=== PATIENT | female | born 1975 | race Caucasian/White ===

== ENCOUNTER 2017-04-01 15:13 | Emergency (ER) | payer SELFPAY ==
[2017-04-01 15:23] VITALS: RESP 16; O2SAT 100
[2017-04-01] MEDS ORDERED: Sodium Chloride 0.9% 1,000 ML IV ONE (15:41)
[2017-04-01] MEDS ORDERED: Sodium Chloride 0.9% 1,000 ML ONE (15:57)
--- NOTE | 2017-04-01 16:18 | C.PDOC ---
History Of Present Illness 41 y/o female presents to ED with complaints of heavy vaginal bleeding for 2 months, with associated abdominal pain radiating to back. Patient admits to feeling dizzy and today thought she would "black out". Claire states her menses started middle of January and has been bleeding daily changing pads 2x a day. She reports seeing PMD 4 days ago. 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 Patient took Tylenol today for pain with no improvement and denies nausea, vomiting, dysuria or any other complaints at this time. Time Seen by Provider: 04/01/17 15:33 Chief Complaint (Nursing): Abdominal Pain History Per: Patient History/Exam Limitations: no limitations Onset/Duration Of Symptoms: Days Current Symptoms Are (Timing): Still Present Location Of Pain/Discomfort: Suprapubic Past Medical History Reviewed: Historical Data, Nursing Documentation, Vital Signs Vital Signs: Last Vital Signs Temp 98.4 F 04/01/17 15:22 Pulse 84 04/01/17 15:22 Resp 16 04/01/17 15:22 BP 113/81 04/01/17 15:22 Pulse Ox 100 04/01/17 18:19 - Medical History PMH: No Chronic Diseases Surgical History: No Surg Hx Family History: States: No Known Family Hx - Social History Hx Tobacco Use: No Hx Alcohol Use: Yes Hx Substance Use: No - Immunization History Hx Tetanus Toxoid Vaccination: No Hx Influenza Vaccination: No Hx Pneumococcal Vaccination: No Review Of Systems Constitutional: Negative for: Fever, Chills Gastrointestinal: Positive for: Abdominal Pain. Negative for: Nausea, Vomiting Genitourinary: Positive for: Vaginal Bleeding. Negative for: Dysuria Musculoskeletal: Positive for: Back Pain Skin: Negative for: Rash Physical Exam - Physical Exam Appears: Non-toxic, Other (Uncomfortable) Skin: Warm, Dry, Pale, No Rash Head: Atraumatic, Normacephalic Eye(s): bilateral: Normal Inspection Oral Mucosa: Moist Neck: Normal ROM, Supple Cardiovascular: Rhythm Regular, No Murmur Respiratory: Normal Breath Sounds, No Rales, No Rhonchi, No Wheezing Gastrointestinal/Abdominal: Soft, Tenderness (Suprapubic), No Guarding, No Rebound Back: No CVA Tenderness Extremity: Bilateral: Atraumatic, Normal Color And Temperature, Normal ROM Neurological/Psych: Oriented x3, Normal Speech Gait: Steady ED Course And Treatment - Laboratory Results Result Diagrams: 04/01/17 16:20 04/01/17 16:20 Lab Interpretation: No Acute Changes O2 Sat by Pulse Oximetry: 100 (RA) Pulse Ox Interpretation: Normal - CT Scan/US Pelvic US Other Rad Studies (CT/US): Read By Radiologist, Radiology Report Reviewed CT/US Interpretation: HISTORY: pelvic pain, heavy bleeding. COMPARISON: None available. TECHNIQUE: Real-time transabdominal pelvic ultrasound was performed. In addition a transvaginal pelvic ultrasound was necessary to better depict pelvic anatomy. FINDINGS: UTERUS: Measures 9.9 x 6.2 x 7.0 cm. Anteverted. Heterogeneous uterine parenchyma. 2.3 x 2.4 x 2.7 cm mid anterior subserosal fibroid. ENDOMETRIUM: Measures 1.8 cm in diameter. CERVIX: Cervix length measures approximately 3.2 cm. RIGHT OVARY: Measures 2.8 x 2.0 x 2.2 cm. Blood flow is demonstrated. LEFT OVARY: Not visualized. FREE FLUID : No significant free fluid noted. OTHER FINDINGS: None. IMPRESSION: Heterogeneous uterine parenchyma. 2.7 cm mid anterior sub serosal uterine fibroid. Thickened endometrium. The left ovary is not visualized. Please note that this examination is predicated on a negative test. Correlate clinically. Medical Decision Making Medical Decision Making: Impression: Pelvic pain, vaginal bleeding Plan: Iv fluids, UA, Blood work, Pelvis US ordered Progress: Labs reviewed and normal H/H/, hypokalemia oral KCL was given US shows fibroma Patient remained afebrile and in no acute distress. Discussed results and copy of lab and US report was provided. Explain she needs to see supervisor whipped topping. Can continue with provera and will give analgesic Patient feels comfortable going home and will be discharged. Patient given follow up instructions. Instructed to return to ER if symptoms worsen or new symptoms arise. Disposition Counseled Patient/Family Regarding: Diagnosis, Need For Followup, Rx Given - Disposition Referrals: [facility] [Outside] [facility] [Outside] [facility] [Outside] Disposition: HOME/ ROUTINE Disposition Time: 18:18 Condition: STABLE Additional Instructions: Your labs were normal and ultrasound shows uterine fibroid Take Naproxen for pain It is important that you follow up with supervisor whipped topping, if you do not have one please go to the clinic Prescriptions: Naproxen [Naprosyn] 1 tab PO BID PRN #25 tab PRN Reason: Pain Instructions: Uterine Fibroids (DC) Forms: [employer] (French) - POA Present On Arrival: None - Clinical Impression Clinical Impression: Uterine fibroid - PA / WHISKEY REGAUGER / Resident Statement MD/DO has reviewed & agrees with the documentation as recorded. - Scribe Statement The provider has reviewed the documentation as recorded by the Wanderibmeg Georges All medical record entries made by the Christian were at my direction and personally dictated by me. I have reviewed the chart and agree that the record accurately reflects my personal performance of the history, physical exam, medical decision making, and the department course for this patient. I have also personally directed, reviewed, and agree with the discharge instructions and disposition.
[2017-04-01 16:27] LABS: BASO % 0.3 % (0.0-2.0); EOS # 0.1 K/uL (0.0-0.7); EOS % 1.3 % (0.0-4.0); HEMOGLOBIN 11.9 g/dL (11.0-16.0); LYMPH # 2.8 K/uL (1.0-4.3); LYMPH % 31.2 % (20.0-40.0); MEAN CORPUSCULAR HEMOGLOBIN 24.4 pg (27.0-31.0); MEAN CORPUSCULAR HGB CONC 32.9 g/dL (33.0-37.0); MEAN PLATELET VOLUME 9.3 fL (7.2-11.7); MONO # 0.3 K/uL (0.0-0.8); MONO % 3.1 % (0.0-10.0); NEUT # 5.7 K/uL (1.8-7.0); NEUT % 64.1 % (50.0-75.0); NRBC % 0.1 % (0.0-2.0); RBC 4.9 Mil/uL (3.80-5.20); RED CELL DISTRIBUTION WIDTH 16.4 % (11.5-14.5); WHITE BLOOD COUNT 8.9 K/uL (4.8-10.8)
[2017-04-01 16:38] LABS: INR 1.1; PROTHROMBIN TIME 11.9 SECONDS (9.7-12.2)
[2017-04-01 16:53] LABS: ALB/GLOB RATIO 1.2 (1.0-2.1); ALBUMIN 4.4 g/dL (3.5-5.0); ALT/SGPT 46 U/L (9-52); AST/SGOT 33 U/L (14-36); BLOOD UREA NITROGEN 10 mg/dL (7-17); CALCIUM 9.8 mg/dl (8.6-10.4); GFR AFRICAN-AMERICAN > 60; GFR NON-AFRICAN AMERICAN > 60; LIPASE 91 U/L (23-300)
[2017-04-01] MEDS ORDERED: Potassium Chloride 20 mEq ER Tab PO STA (17:04)
[2017-04-01] MEDS ORDERED: Potassium Chloride 20 mEq ER Tab PO ONE (17:52)
--- NOTE | 2017-04-01 17:52 | US ---
HISTORY: pelvic pain, heavy bleeding COMPARISON: None available. TECHNIQUE: Real-time transabdominal pelvic ultrasound was performed. In addition a transvaginal pelvic ultrasound was necessary to better depict pelvic anatomy. FINDINGS: UTERUS: Measures 9.9 x 6.2 x 7.0 cm. Anteverted. Heterogeneous uterine parenchyma. 2.3 x 2.4 x 2.7 cm mid anterior subserosal fibroid. ENDOMETRIUM: Measures 1.8 cm in diameter. CERVIX: Cervix length measures approximately 3.2 cm. RIGHT OVARY: Measures 2.8 x 2.0 x 2.2 cm. Blood flow is demonstrated. LEFT OVARY: Not visualized. FREE FLUID: No significant free fluid noted. OTHER FINDINGS: None. IMPRESSION: Heterogeneous uterine parenchyma. 2.7 cm mid anterior sub serosal uterine fibroid. Thickened endometrium. The left ovary is not visualized. Please note that this examination is predicated on a negative test. Correlate clinically.
[2017-04-01 18:05] LABS: HCG,QUALITATIVE URINE NEGATIVE (NEGATIVE)
[2017-04-01 18:10] LABS: SQUAMOUS EPITHIAL 5 /hpf (0-5); URINE BILIRUBIN NEGATIVE (NEGATIVE); URINE BLOOD 2+ (NEGATIVE); URINE CLARITY Hazy (Clear); URINE COLOR Yellow (YELLOW); URINE GLUCOSE (UA) NORMAL (Normal); URINE HYALINE CAST 0-2 /lpf (0-2); URINE LEUKOCYTE ESTERASE NEG Leu/uL (Negative); URINE NITRATE NEGATIVE (NEGATIVE); URINE PROTEIN NEGATIVE (NEGATIVE); URINE UROBILINOGEN NORMAL mg/dL (0.2-1.0)
[2017-04-01 18:34] VITALS: BP 115/75; PULSE 80; TEMP 97.8
== END 2017-04-01 18:45 | disposition home or self-care (01) ==
LOC: C.ER 15:13
DX: D25.2 Subserosal leiomyoma of uterus (principal)
CPT/HCPCS: 76830; 76856; 80053; 81001; 83690; 84439; 84443; 84703; 85025; 85610; 85730; 96360; 99285; J7040

== ENCOUNTER 2017-04-12 12:00 | Emergency (ER) | payer SELFPAY ==
[2017-04-12 12:04] VITALS: BP 137/82; PULSE 87; RESP 20; TEMP 98.5; O2SAT 99
== END 2017-04-12 12:47 | disposition left against medical advice (07) ==
LOC: C.ER 12:00
DX: Z02.89 Encounter for other administrative examinations (principal); Z00.00 Encounter for general adult medical examination without abnormal findings

== ENCOUNTER 2017-04-21 05:13 | Observation (INO) | payer OTHER ==
--- NOTE | 2017-04-21 05:18 | C.PDOC ---
History Of Present Illness pt woke up with some chest pain. Told her . He gave her 1 asa81 mg. then pt felt lightheaded and had a syncopal episode lasting a fe seconds. No seizure activity observed. Pt also has been having heavy vaginal bleeding over the last 4 months from possible uterine fibroids. No f/c/n/v Time Seen by Provider: 04/21/17 05:18 Chief Complaint (Nursing): Chest Pain History Per: Patient History/Exam Limitations: no limitations Onset/Duration Of Symptoms: Hrs Current Symptoms Are (Timing): Still Present Context: Other Severity: Moderate Pain Scale Rating Of: 4 Quality: Dull Associated Symptoms: denies: Nausea, Dyspnea Modifying Factors: None Exacerbating Factors: None Alleviating Factors: None Recent travel outside of the [place]: No Additional History Per: Family Past Medical History Reviewed: Historical Data, Nursing Documentation, Vital Signs Vital Signs: Last Vital Signs Temp 98.1 F 04/21/17 06:37 Pulse 67 04/21/17 06:37 Resp 17 04/21/17 06:37 BP 114/78 04/21/17 06:37 Pulse Ox 98 04/21/17 06:37 Family History: States: No Known Family Hx - Social History Hx Tobacco Use: No Hx Alcohol Use: Yes Hx Substance Use: No - Immunization History Hx Tetanus Toxoid Vaccination: No Hx Influenza Vaccination: No Hx Pneumococcal Vaccination: No Review Of Systems Constitutional: Negative for: Fever, Chills Eyes: Negative for: Redness ENT: Negative for: Throat Pain Cardiovascular: Positive for: Chest Pain Respiratory: Negative for: Shortness of Breath Gastrointestinal: Negative for: Nausea, Vomiting, Abdominal Pain Genitourinary: Positive for: Vaginal Bleeding. Negative for: Dysuria Musculoskeletal: Negative for: Back Pain Skin: Negative for: Rash Neurological: Negative for: Weakness Psych: Negative for: Anxiety Physical Exam - Physical Exam Appears: Non-toxic Skin: Warm, Dry Head: Normacephalic Eye(s): bilateral: Normal Inspection Oral Mucosa: Moist Neck: Supple Chest: Symmetrical Cardiovascular: Rhythm Regular Respiratory: No Rales, No Rhonchi, No Wheezing Gastrointestinal/Abdominal: Soft, No Tenderness, No Distention Back: No CVA Tenderness Extremity: Normal ROM Extremity: Bilateral: Atraumatic Pulses: Left Dorsalis Pedis: Normal, Right Dorsalis Pedis: Normal Neurological/Psych: Oriented x3, Normal Speech, Normal Cognition Gait: Steady ED Course And Treatment - Laboratory Results Result Diagrams: 04/21/17 05:44 04/21/17 05:44 ECG: Interpreted By Me, Viewed By Me ECG Rhythm: Sinus Rhythm (80), Nonspecific Changes Pulse Ox Interpretation: Normal - Radiology CXR: Interpreted by Me, Viewed By Me CXR Interpretation: No: Infiltrates, Fracture, Pnemothorax Disposition - Disposition Disposition Time: 06:53 Condition: FAIR Forms: [employer] ([place]) - Clinical Impression Clinical Impression: Chest pain, Syncope, Vaginal bleeding Physician Patient Turnover Patient Signed Over To: Adrianne Hackett Handoff Comments: pending labs and re-asses
[2017-04-21] MEDS ORDERED: Aspirin 325 mg EC Tablets PO STA (05:35)
[2017-04-21 05:47] LABS: BASO % 0.6 % (0.0-2.0); EOS # 0.2 K/uL (0.0-0.7); EOS % 2.9 % (0.0-4.0); HEMOGLOBIN 9.2 g/dL (11.0-16.0); LYMPH # 3.4 K/uL (1.0-4.3); LYMPH % 39.3 % (20.0-40.0); MEAN CORPUSCULAR HGB CONC 32.9 g/dL (33.0-37.0); MEAN PLATELET VOLUME 9.6 fL (7.2-11.7); MONO # 0.4 K/uL (0.0-0.8); MONO % 5.1 % (0.0-10.0); NEUT # 4.5 K/uL (1.8-7.0); NEUT % 52.1 % (50.0-75.0); NRBC % 0.1 % (0.0-2.0); RBC 3.53 Mil/uL (3.80-5.20); RED CELL DISTRIBUTION WIDTH 19.9 % (11.5-14.5); WHITE BLOOD COUNT 8.7 K/uL (4.8-10.8)
[2017-04-21 05:56] LABS: INR 0.9; PROTHROMBIN TIME 10.5 SECONDS (9.7-12.2)
[2017-04-21 06:12] LABS: B-TYPE NATRIURETIC PEPTIDE 34.5 pg/mL (0-450)
[2017-04-21 06:25] LABS: ALB/GLOB RATIO 1.1 (1.0-2.1); ALBUMIN 3.7 g/dL (3.5-5.0); ALT/SGPT 28 U/L (9-52); AST/SGOT 16 U/L (14-36); BLOOD UREA NITROGEN 8 mg/dL (7-17); CALCIUM 8.6 mg/dl (8.6-10.4); GFR AFRICAN-AMERICAN > 60; GFR NON-AFRICAN AMERICAN > 60
[2017-04-21 06:39] LABS: HCG,QUALITATIVE URINE NEGATIVE (NEGATIVE)
[2017-04-21 06:45] LABS: SQUAMOUS EPITHIAL 3 /hpf (0-5); URINE BILIRUBIN NEGATIVE (NEGATIVE); URINE BLOOD 3+ (NEGATIVE); URINE CLARITY Hazy (Clear); URINE COLOR Red (YELLOW); URINE GLUCOSE (UA) NORMAL (Normal); URINE LEUKOCYTE ESTERASE TRACE Leu/uL (Negative); URINE NITRATE NEGATIVE (NEGATIVE); URINE PROTEIN 1+ mg/dL (NEGATIVE); URINE UROBILINOGEN NORMAL mg/dL (0.2-1.0)
--- NOTE | 2017-04-21 08:55 | RAD ---
Chest x-ray single frontal view History: Chest pain. Comparison: 05/12/2014 Findings: No focal infiltrate or effusion. Heart size within normal limits. Impression: No focal infiltrate or effusion.
[2017-04-21] MEDS ORDERED: Ferric Sodium Gluconat Complex 62.5 mg/5 ml Vial IVPB SCH (10:30)
--- NOTE | 2017-04-21 10:38 | CP.PCM.HP ---
<Alon Arciniega - Last Filed: 04/21/17 17:20> History of Present Illness - History of Present Illness History of Present Illness: PGY1 H+P for Dr. Abreu Patient is a 41 yr old female with a PMHx of fibroids-newly diagnosed in January 2017, who presented to the ED this morning with complaints of chest pain and a syncopal event. Patient reports she was awoken from her sleep at 4: 45am with severe right sided chest pain. She reports the pain to be 10/10, sharp in quality, constant, with associated dizziness and SOB. Patient denies and radiation of pain, nausea, or diaphoresis. Patient reports she awoke her who then helped her back in to bed. While in his arms reports the patient had a syncopal event lasting 2 minutes. He reports patient lost consciousness, however denies any convulsions or incontinence. Patient has a history of a 2.7 cm mid anterior sub serosal fibroid recently discovered on US after patient to ED with reports of uncontrolled vaginal bleeding, daily since January. The vaginal bleed produces many clots. Patient is seen in the [facility] for [facility] care and is due to follow up within the next 2 weeks. Her PMD- Killian, recently started her on medroxyprogesterone. Denies fevers, chills, nausea, vomiting, diarrhea, constipation, dysuria, cough, shortness of breath, numbness or tingling. PMD: Dr. Daily PMH: fibroids PSH: denies FamilyHx: non-contributory Social: never smoker, social alcohol, denies illicit drug use Allergies: NKDA Present on Admission - Present on Admission Any Indicators Present on Admission: No Review of Systems - Review of Systems All systems: reviewed and no additional remarkable complaints except (as HPI) Past Patient History - Infectious Disease Hx of Infectious Diseases: None - Past Social History Smoking Status: Never Smoked - GENITOURINARY/GYNECOLOGICAL Other/Comment: fiboid uterus , vag. bleeding x 4 months - PSYCHIATRIC Hx Substance Use: No - SURGICAL HISTORY Hx Surgeries: No - ANESTHESIA Hx Anesthesia: No Hx Anesthesia Reactions: No Meds Allergies/Adverse Reactions: Allergies Allergy/AdvReac Type Severity Reaction Status Date / Time No Known Allergies Allergy Verified 04/21/17 05:15 Physical Exam - Constitutional Appears: Non-toxic, No Acute Distress - Head Exam Head Exam: ATRAUMATIC, NORMOCEPHALIC - Eye Exam Eye Exam: EOMI Pupil Exam: NORMAL ACCOMODATION - ENT Exam ENT Exam: Mucous Membranes Moist - Respiratory Exam Respiratory Exam: Clear to Auscultation Bilateral, NORMAL BREATHING PATTERN. absent: Accessory Muscle Use, Rales, Rhonchi, Wheezes, Respiratory Distress - Cardiovascular Exam Cardiovascular Exam: REGULAR RHYTHM, +S1, +S2. absent: JVD Additional comments: Reproducible pain - Tender to palpation on right side of sternum - GI/Abdominal Exam GI & Abdominal Exam: Normal Bowel Sounds, Soft, Tenderness. absent: Distended, Firm, Guarding Additional comments: LLQ - Extremities Exam Extremities exam: Positive for: pedal pulses present. Negative for: calf tenderness, pedal edema - Back Exam Back exam: absent: CVA tenderness (L), CVA tenderness (R), paraspinal tenderness - Neurological Exam Neurological exam: Alert, Oriented x3 - Psychiatric Exam Psychiatric exam: Normal Affect, Normal Mood - Skin Skin Exam: Dry, Warm Results - Vital Signs Recent Vital Signs: Last Vital Signs Temp 98 F 04/21/17 10:14 Pulse 65 04/21/17 10:14 Resp 16 04/21/17 10:14 BP 120/70 04/21/17 10:14 Pulse Ox 98 04/21/17 10:14 - Labs Result Diagrams: 04/21/17 05:44 04/21/17 05:44 Labs: Laboratory Results - last 24 hr 04/21/17 04/21/17 04/21/17 05:44 05:44 05:44 WBC 8.7 RBC 3.53 L Hgb 9.2 L D Hct 27.9 L MCV 79.0 L D MCH 26.0 L MCHC 32.9 L RDW 19.9 H Plt Count 310 MPV 9.6 Neut % (Auto) 52.1 Lymph % (Auto) 39.3 [place] % (Auto) 5.1 Eos % (Auto) 2.9 Baso % (Auto) 0.6 Neut # (Auto) 4.5 Lymph # (Auto) 3.4 [place] # (Auto) 0.4 Eos # (Auto) 0.2 Baso # (Auto) 0.0 PT 10.5 INR 0.9 APTT 27 Sodium 140 Potassium 3.8 Chloride 105 Carbon Dioxide 24 Anion Gap 16 BUN 8 Creatinine 0.6 L Est GFR ( Amer) > 60 Est GFR (Non-Af Amer) > 60 Random Glucose 102 Calcium 8.6 Total Bilirubin 0.7 AST 16 ALT 28 Alkaline Phosphatase 66 Troponin I < 0.0120 NT-Pro-B Natriuret Pep 34.5 Total Protein 7.0 Albumin 3.7 Globulin 3.3 Albumin/Globulin Ratio 1.1 Urine Color Urine Clarity Urine pH Ur Specific [place] Urine Protein Urine Glucose (UA) Urine Ketones Urine Blood Urine Nitrate Urine Bilirubin Urine Urobilinogen Ur Leukocyte Esterase Urine WBC (Auto) Urine RBC (Auto) Ur Squamous Epith Cells Urine HCG, Qual Blood Type Antibody Screen 04/21/17 04/21/17 05:44 06:36 WBC RBC Hgb Hct MCV MCH MCHC RDW Plt Count MPV Neut % (Auto) Lymph % (Auto) [place] % (Auto) Eos % (Auto) Baso % (Auto) Neut # (Auto) Lymph # (Auto) [place] # (Auto) Eos # (Auto) Baso # (Auto) PT INR APTT Sodium Potassium Chloride Carbon Dioxide Anion Gap BUN Creatinine Est GFR ( Amer) Est GFR (Non-Af Amer) Random Glucose Calcium Total Bilirubin AST ALT Alkaline Phosphatase Troponin I NT-Pro-B Natriuret Pep Total Protein Albumin Globulin Albumin/Globulin Ratio Urine Color Red Urine Clarity Hazy Urine pH 5.0 Ur Specific [place] 1.013 Urine Protein 1+ H Urine Glucose (UA) Normal Urine Ketones Negative Urine Blood 3+ H Urine Nitrate Negative Urine Bilirubin Negative Urine Urobilinogen Normal Ur Leukocyte Esterase Trace Urine WBC (Auto) 20 H Urine RBC (Auto) 1199 H Ur Squamous Epith Cells 3 Urine HCG, Qual Negative Blood Type B POSITIVE Antibody Screen Negative Assessment & Plan - Assessment and Plan (Free Text) Plan: Chest Pain with syncope CXR EKG - NSR, normal axis, not ST changes OTTO negative x2, f/u third f/u ECHO TSH/free T4 f/u Lipid panel f/u Hgb A1c f/u Anemia - secondary to menorrhagia [facility] consult, Dr. Graf, help appreciated Transvag US 04/01 - 2.7 cm mid-anterior sub serosal uterine fibroid Hgb 9.2 - was 11.9 on 04/01/17 Type and Screen - B negative Medroxyprogesterone 10mg PO daily Ferric Sodium 125mg IVPB daily Prophylactic Care DVT - anticoag contraindicated due to anemia SCDs Case discussed with Dr. Lois Arciniega PGY1 <Francisco Abreu H - Last Filed: 04/22/17 08:56> Results - Vital Signs Recent Vital Signs: Last Vital Signs Temp 98.1 F 04/22/17 07:00 Pulse 80 04/22/17 07:00 Resp 18 04/22/17 07:00 BP 129/80 04/22/17 07:00 Pulse Ox 98 04/22/17 07:00 - Labs Result Diagrams: 04/22/17 07:46 04/22/17 07:46 Labs: Laboratory Results - last 24 hr 04/21/17 04/21/17 04/22/17 12:18 18:05 07:46 WBC 6.3 RBC 3.25 L Hgb 8.4 L Hct 25.7 L MCV 79.0 L MCH 26.0 L MCHC 32.9 L RDW 20.2 H Plt Count 282 MPV 9.6 Neut % (Auto) 58.1 Lymph % (Auto) 33.4 [place] % (Auto) 5.3 Eos % (Auto) 2.4 Baso % (Auto) 0.8 Neut # (Auto) 3.7 Lymph # (Auto) 2.1 [place] # (Auto) 0.3 Eos # (Auto) 0.2 Baso # (Auto) 0.0 PT INR APTT Sodium Potassium Chloride Carbon Dioxide Anion Gap BUN Creatinine Est GFR ( Amer) Est GFR (Non-Af Amer) Random Glucose Hemoglobin A1c Calcium Total Bilirubin AST ALT Alkaline Phosphatase Total Creatine Kinase 42 51 CK-MB (Mass) 0.23 0.27 Troponin I < 0.0120 < 0.0120 Total Protein Albumin Globulin Albumin/Globulin Ratio Triglycerides Cholesterol LDL Cholesterol Direct HDL Cholesterol Thyroxine (T4) TSH 3rd Generation 04/22/17 04/22/17 04/22/17 07:46 07:46 07:46 WBC RBC Hgb Hct MCV MCH MCHC RDW Plt Count MPV Neut % (Auto) Lymph % (Auto) [place] % (Auto) Eos % (Auto) Baso % (Auto) Neut # (Auto) Lymph # (Auto) [place] # (Auto) Eos # (Auto) Baso # (Auto) PT 12.1 INR 1.1 APTT 29 Sodium 142 Potassium 4.2 Chloride 105 Carbon Dioxide 25 Anion Gap 16 BUN 6 L Creatinine 0.6 L Est GFR ( Amer) > 60 Est GFR (Non-Af Amer) > 60 Random Glucose 92 Hemoglobin A1c 4.9 Calcium 8.4 L Total Bilirubin 0.8 AST 18 ALT 19 Alkaline Phosphatase 56 Total Creatine Kinase CK-MB (Mass) Troponin I Total Protein 6.6 Albumin 3.6 Globulin 3.0 Albumin/Globulin Ratio 1.2 Triglycerides 166 H Cholesterol 228 H LDL Cholesterol Direct 143 H HDL Cholesterol 33 Thyroxine (T4) 9.43 TSH 3rd Generation 4.05 Attending/Attestation - Attestation I have personally seen and examined this patient.: Yes I have fully participated in the care of the patient.: Yes I have reviewed all pertinent clinical information: Yes Notes (Text): 04/22/17 08:56 Medical attending: Patient was seen and examined by me and the bilingual medical receptionist in the emergency room at 6. Family members were present as well, the patient was okay with this. I reviewed the above note by the resident and agree with the above When we came and saw the patient she was not in any acute distress she explained to us that she does have heavy menstrual periods. She did have a transvaginal ultrasound done in March which showed that she does have at least one fibroid that's that about 2.7 cm size. She was already on medroxyprogesterone and she supposed to have outpatient follow-up with [facility] in the near future. Her hemoglobin was decreased from the previous time she was here, as reported above she's been having bleeding. We well type and screen her and for now and give her some IV iron. I explained to them that tomorrow if the hemoglobin is substantially lower were consider transfusing her. In the meantime because she had a syncopal episode on the to check additional cardiac enzymes, as well as an echo. I explained to the patient that if her lab work and studies are normal will consider discharging her tomorrow provided that she is able to ambulate is and not become dizzy. We encouraged her to be very careful when sitting up quickly in case she becomes dizzy orthostatic Thank you very much, Francisco Abreu
[2017-04-21] MEDS: Sodium Chloride 0.9% 1,000 ML IV SCH ×2 (10:49→21:06)
--- NOTE | 2017-04-21 12:21 | CP.PCM.CON ---
<Sahara Mitchell - Last Filed: 04/21/17 17:37> History of Present Illness - History of Present Illness History of Present Illness: Consult note for Dr. Velasquez CC: Vaginal bleeding (x3 months), Chest pain and syncope HPI: A 41 yo female presents complaining of vaginal bleeding for the past 3 months. Patient states that this morning she woke up with a sharp chest pain at around 4:45 AM, and then blacked out in bed for 5-10 seconds. Patient was brought to ED by her . Patient states that the chest pain in the right chest, comes and goes, does not radiate, no particular exacerbating or remitting factors, associated with shortness of breath and anxiety. Patient states she took an aspirin which did not help her pain. Bleeding started Jan 26. Patient describes bleeding as heavy, with clots, soaks through 3-4 pads daily. Patient states she was started on Provera 10 mg daily by her PCP for the vaginal bleeding in February and that there has been no improvement in her bleeding. Patient states she is willing to have a hysterectomy if that will stop her heavy bleeding; no longer desires . Patient not having chest pain or shortness of breath at this time. Denies nausea, vomiting, diarrhea, constipation, fever, chills. Admits to abdominal/pelvic pain and associated left back pain since the onset of the bleeding, similar to the cramps she has during her normal menstrual period. Denies any history of recent travel or prolonged immobilization. 12 point ROS was obtained and was negative except as above. All: NKDA PMH: Denies PSH: Denies FHx: Father , Heart disease and DM; Mother with HTN, and hysterectomy age 35 2/2 menorrhagia Soc: Denies tobacco, alcohol, or illicits. Lives with of 25 years OB Hx: 1993 - , uncomplicated , labor, and delivery 1994 - First trimester spontaneous 1997 - , uncomplicated , labor, and delivery 2006 - First trimester spontaneous [employer] Hx: [place] - 14, monthly, 6 days Currently sexually active with one male partner - of 25 years Denies history of STIs or cysts Fibroid, diagnosed 04/01/17 Past Patient History - Infectious Disease Hx of Infectious Diseases: None - Past Social History Smoking Status: Never Smoked - GENITOURINARY/GYNECOLOGICAL Other/Comment: fiboid uterus , vag. bleeding x 4 months - PSYCHIATRIC Hx Substance Use: No - SURGICAL HISTORY Hx Surgeries: No - ANESTHESIA Hx Anesthesia: No Hx Anesthesia Reactions: No Meds Allergies/Adverse Reactions: Allergies Allergy/AdvReac Type Severity Reaction Status Date / Time No Known Allergies Allergy Verified 04/21/17 05:15 - Medications Medications: Current Medications Acetaminophen (Tylenol 325mg Tab) 650 mg PO Q6 PRN PRN Reason: fever/pain Sodium Chloride (Sodium Chloride 0.9%) 1,000 mls @ 50 mls/hr IV .Q20H [facility] Last Admin: 04/21/17 10:49 Dose: 50 mls/hr Ferric Sodium Gluconate Complex 125 mg/ Sodium Chloride 110 mls @ 110 mls/hr IVPB Q24H [facility] Stop: 04/29/17 11:01 Medroxyprogesterone Acetate (Provera) 10 mg PO DAILY [facility] Physical Exam - Constitutional Appears: Non-toxic, No Acute Distress - Head Exam Head Exam: ATRAUMATIC, NORMOCEPHALIC - Eye Exam Eye Exam: EOMI, Normal appearance, PERRL. absent: Scleral icterus - ENT Exam ENT Exam: Mucous Membranes Moist - Neck Exam Neck exam: Positive for: Normal Inspection - Respiratory Exam Respiratory Exam: Clear to Auscultation Bilateral, NORMAL BREATHING PATTERN - Cardiovascular Exam Cardiovascular Exam: RRR, +S1, +S2. absent: Tachycardia - GI/Abdominal Exam GI & Abdominal Exam: Normal Bowel Sounds, Soft. absent: Tenderness - Exam Additional comments: Bright red blood noted from cervical os No masses or polyps No adnexal tenderness - Extremities Exam Extremities exam: Positive for: normal capillary refill, normal inspection, pedal pulses present. Negative for: calf tenderness, pedal edema - Back Exam Back exam: absent: CVA tenderness (L), CVA tenderness (R) - Neurological Exam Neurological exam: Alert, CN II-XII Intact, Oriented x3 - Psychiatric Exam Psychiatric exam: Normal Affect, Normal Mood - Skin Skin Exam: Dry, Intact, Normal Color Results - Vital Signs Recent Vital Signs: Last Vital Signs Temp 98 F 04/21/17 10:14 Pulse 65 04/21/17 10:14 Resp 16 04/21/17 10:14 BP 120/70 04/21/17 10:14 Pulse Ox 98 04/21/17 10:14 - Labs Result Diagrams: 04/21/17 05:44 04/21/17 05:44 Labs: Laboratory Results - last 24 hr 04/21/17 04/21/17 04/21/17 05:44 05:44 05:44 WBC 8.7 RBC 3.53 L Hgb 9.2 L D Hct 27.9 L MCV 79.0 L D MCH 26.0 L MCHC 32.9 L RDW 19.9 H Plt Count 310 MPV 9.6 Neut % (Auto) 52.1 Lymph % (Auto) 39.3 Rush % (Auto) 5.1 Eos % (Auto) 2.9 Baso % (Auto) 0.6 Neut # (Auto) 4.5 Lymph # (Auto) 3.4 Rush # (Auto) 0.4 Eos # (Auto) 0.2 Baso # (Auto) 0.0 PT 10.5 INR 0.9 APTT 27 Sodium 140 Potassium 3.8 Chloride 105 Carbon Dioxide 24 Anion Gap 16 BUN 8 Creatinine 0.6 L Est GFR ( Amer) > 60 Est GFR (Non-Af Amer) > 60 Random Glucose 102 Calcium 8.6 Total Bilirubin 0.7 AST 16 ALT 28 Alkaline Phosphatase 66 Troponin I < 0.0120 NT-Pro-B Natriuret Pep 34.5 Total Protein 7.0 Albumin 3.7 Globulin 3.3 Albumin/Globulin Ratio 1.1 Urine Color Urine Clarity Urine pH Ur Specific [place] Urine Protein Urine Glucose (UA) Urine Ketones Urine Blood Urine Nitrate Urine Bilirubin Urine Urobilinogen Ur Leukocyte Esterase Urine WBC (Auto) Urine RBC (Auto) Ur Squamous Epith Cells Urine HCG, Qual Blood Type Antibody Screen 04/21/17 04/21/17 05:44 06:36 WBC RBC Hgb Hct MCV MCH MCHC RDW Plt Count MPV Neut % (Auto) Lymph % (Auto) Rush % (Auto) Eos % (Auto) Baso % (Auto) Neut # (Auto) Lymph # (Auto) Rush # (Auto) Eos # (Auto) Baso # (Auto) PT INR APTT Sodium Potassium Chloride Carbon Dioxide Anion Gap BUN Creatinine Est GFR ( Amer) Est GFR (Non-Af Amer) Random Glucose Calcium Total Bilirubin AST ALT Alkaline Phosphatase Troponin I NT-Pro-B Natriuret Pep Total Protein Albumin Globulin Albumin/Globulin Ratio Urine Color Red Urine Clarity Hazy Urine pH 5.0 Ur Specific [place] 1.013 Urine Protein 1+ H Urine Glucose (UA) Normal Urine Ketones Negative Urine Blood 3+ H Urine Nitrate Negative Urine Bilirubin Negative Urine Urobilinogen Normal Ur Leukocyte Esterase Trace Urine WBC (Auto) 20 H Urine RBC (Auto) 1199 H Ur Squamous Epith Cells 3 Urine HCG, Qual Negative Blood Type B POSITIVE Antibody Screen Negative Assessment & Plan - Assessment and Plan (Free Text) Assessment: 41 yo female presents complaining of vaginal bleeding x3 months, chest pain, and syncope; likely symptomatic anemia; admitted to telemetry for monitoring and to r/o ACS - Agree with admission to telemetry - Ordered transvaginal ultrasound; prior US completed 04/01/17 showed 2.7cm subserosal fibroid, heterogeneous uterus, and thickened endometrium - Intake labs significant for acute anemia compared to baseline; prior labs show normal thyroid function and no coagulopathy - Urine screen negative - VSS, continues to have moderate amount of vaginal bleeding on exam - Type and screen - Discontinue Provera - Recommend starting combined oral contraceptive tomorrow after cardiac clearance - Necon ; 1 tab PO TID x3 days or until bleeding stops, then 1 tab PO BID x5 days, then 1 tab PO QD until pack is finished, then skip inert (placebo) pills and start new pack, 1 tab PO QD, to completion - Patient should start oral iron supplement, Ferrous Sulfate 325 PO BID for 2 months, then BID on days when bleeding - Repeat CBC in AM - Patient requires outpatient follow up for biopsy and monitoring - Patient also requires mammogram for screening, and after taking hormone supplements - Plan discussed with Dr. Ron Mitchell DO PGY1 <Geovanni Velasquez S - Last Filed: 04/21/17 20:54> History of Present Illness - History of Present Illness History of Present Illness: ATTENDING ADDENDUM: Pt seen & examined by me with Dr. Mitchell. Agree with above assessment and plan with following clarification. Pt was given Rx of Provera which she was taking continuously not allowing for the withdrawal bleeding. She states her cramping increased in severity in assoc with the increased blood flow and was not relieved with heat therapy or nsaids as it had in the past. Meds - Medications Medications: Current Medications Acetaminophen (Tylenol 325mg Tab) 650 mg PO Q6 PRN PRN Reason: fever/pain Last Admin: 04/21/17 16:05 Dose: 650 mg Sodium Chloride (Sodium Chloride 0.9%) 1,000 mls @ 50 mls/hr IV .Q20H [facility] Last Admin: 04/21/17 10:49 Dose: 50 mls/hr Ferric Sodium Gluconate Complex 125 mg/ Sodium Chloride 110 mls @ 110 mls/hr IVPB Q24H [facility] Stop: 04/29/17 11:01 Last Admin: 04/21/17 12:40 Dose: 110 mls/hr Physical Exam - Exam Speculum exam: Vaginal Bleeding. absent: Cervical Discharge, Foreign Body, Laceration, NORMAL SPECULUM EXAM (small amount of steady bleeding, bright red per cervical os. cl/th), Vaginal Discharge Bimanual exam: NORMAL BIMANUAL EXAM. absent: Adenexal Mass, Cervical Motion Tendernes, Uterine Tenderness Results - Vital Signs Recent Vital Signs: Last Vital Signs Temp 98.1 F 04/21/17 17:49 Pulse 74 04/21/17 18:44 Resp 20 04/21/17 17:49 BP 124/81 04/21/17 17:49 Pulse Ox 100 04/21/17 17:49 - Labs Result Diagrams: 04/21/17 05:44 04/21/17 05:44 Labs: Laboratory Results - last 24 hr 04/21/17 04/21/17 04/21/17 05:44 05:44 05:44 WBC 8.7 RBC 3.53 L Hgb 9.2 L D Hct 27.9 L MCV 79.0 L D MCH 26.0 L MCHC 32.9 L RDW 19.9 H Plt Count 310 MPV 9.6 Neut % (Auto) 52.1 Lymph % (Auto) 39.3 Rush % (Auto) 5.1 Eos % (Auto) 2.9 Baso % (Auto) 0.6 Neut # (Auto) 4.5 Lymph # (Auto) 3.4 Rush # (Auto) 0.4 Eos # (Auto) 0.2 Baso # (Auto) 0.0 PT 10.5 INR 0.9 APTT 27 Sodium 140 Potassium 3.8 Chloride 105 Carbon Dioxide 24 Anion Gap 16 BUN 8 Creatinine 0.6 L Est GFR ( Amer) > 60 Est GFR (Non-Af Amer) > 60 Random Glucose 102 Calcium 8.6 Total Bilirubin 0.7 AST 16 ALT 28 Alkaline Phosphatase 66 Total Creatine Kinase CK-MB (Mass) Troponin I < 0.0120 NT-Pro-B Natriuret Pep 34.5 Total Protein 7.0 Albumin 3.7 Globulin 3.3 Albumin/Globulin Ratio 1.1 Urine Color Urine Clarity Urine pH Ur Specific [place] Urine Protein Urine Glucose (UA) Urine Ketones Urine Blood Urine Nitrate Urine Bilirubin Urine Urobilinogen Ur Leukocyte Esterase Urine WBC (Auto) Urine RBC (Auto) Ur Squamous Epith Cells Urine HCG, Qual Blood Type Antibody Screen 04/21/17 04/21/17 04/21/17 05:44 06:36 12:18 WBC RBC Hgb Hct MCV MCH MCHC RDW Plt Count MPV Neut % (Auto) Lymph % (Auto) Rush % (Auto) Eos % (Auto) Baso % (Auto) Neut # (Auto) Lymph # (Auto) Rush # (Auto) Eos # (Auto) Baso # (Auto) PT INR APTT Sodium Potassium Chloride Carbon Dioxide Anion Gap BUN Creatinine Est GFR ( Amer) Est GFR (Non-Af Amer) Random Glucose Calcium Total Bilirubin AST ALT Alkaline Phosphatase Total Creatine Kinase 42 CK-MB (Mass) 0.23 Troponin I < 0.0120 NT-Pro-B Natriuret Pep Total Protein Albumin Globulin Albumin/Globulin Ratio Urine Color Red Urine Clarity Hazy Urine pH 5.0 Ur Specific [place] 1.013 Urine Protein 1+ H Urine Glucose (UA) Normal Urine Ketones Negative Urine Blood 3+ H Urine Nitrate Negative Urine Bilirubin Negative Urine Urobilinogen Normal Ur Leukocyte Esterase Trace Urine WBC (Auto) 20 H Urine RBC (Auto) 1199 H Ur Squamous Epith Cells 3 Urine HCG, Qual Negative Blood Type B POSITIVE Antibody Screen Negative 04/21/17 18:05 WBC RBC Hgb Hct MCV MCH MCHC RDW Plt Count MPV Neut % (Auto) Lymph % (Auto) Rush % (Auto) Eos % (Auto) Baso % (Auto) Neut # (Auto) Lymph # (Auto) Rush # (Auto) Eos # (Auto) Baso # (Auto) PT INR APTT Sodium Potassium Chloride Carbon Dioxide Anion Gap BUN Creatinine Est GFR ( Amer) Est GFR (Non-Af Amer) Random Glucose Calcium Total Bilirubin AST ALT Alkaline Phosphatase Total Creatine Kinase 51 CK-MB (Mass) 0.27 Troponin I < 0.0120 NT-Pro-B Natriuret Pep Total Protein Albumin Globulin Albumin/Globulin Ratio Urine Color Urine Clarity Urine pH Ur Specific [place] Urine Protein Urine Glucose (UA) Urine Ketones Urine Blood Urine Nitrate Urine Bilirubin Urine Urobilinogen Ur Leukocyte Esterase Urine WBC (Auto) Urine RBC (Auto) Ur Squamous Epith Cells Urine HCG, Qual Blood Type Antibody Screen Assessment & Plan - Assessment and Plan (Free Text) Assessment: I: Anovulatory Bleeding Dysmenorrhea- consider adenomyosisi P:If not contrainidcated pt should take Necon as stated above. Disp#1packet with #1refill so pt will take as directed. No further refills. Pt to f/u in [facility] where she can be further eval w/ emb/ d&c. Further hormonal management will be per Dr. Martinez in clinic
--- NOTE | 2017-04-21 12:37 | US ---
HISTORY: hx of vaginal bleed for 4months with syncope COMPARISON: Pelvic/transvaginal ultrasound performed 04/01/17 TECHNIQUE: Transvaginal pelvic ultrasound FINDINGS: UTERUS: Measures 9.1 x 5.4 x 6.0 cm. Anteverted. Heterogeneous uterine parenchyma. 2.4 x 2.4 x 2.8 cm probable anterior sub serosal fibroid. ENDOMETRIUM: Measures 1 cm. CERVIX: No cervical abnormality identified. RIGHT OVARY: Measures 4.5 x 3.1 x 3.3 cm. Blood flow is demonstrated. LEFT OVARY: Measures 3.5 x 1.9 x 3.5 cm. Blood flow is demonstrated. FREE FLUID: No significant free fluid noted. OTHER FINDINGS: None. IMPRESSION: Heterogeneous uterine parenchyma. Anterior sub serosal fibroid measures approximately 2.8 cm. Endometrial thickness approximately 1 cm. Correlate with stage of menstrual cycle. 2.1 cm right ovarian follicle/cyst.
[2017-04-21] MEDS: Ferric Sodium Gluconat Complex 125 MG in Sodium Chloride 0.9% 100 ML IVPB SCH (12:40)
[2017-04-21 12:50] LABS: CK-MB 0.23 ng/mL (0.0-3.38)
[2017-04-21 18:33] LABS: CK-MB 0.27 ng/mL (0.0-3.38)
--- NOTE | 2017-04-21 21:57 | CARD ---
APPROVED REPORT EXAM: Two-dimensional and M-mode echocardiogram with Doppler and color Doppler. Other Information Quality : GoodRhythm : INDICATION Chest Pain Syncope 2D DIMENSIONS IVSd0.9 (0.7-1.1cm)LVDd4.0 (3.9-5.9cm) PWd0.9 (0.7-1.1cm)LVDs2.6 (2.5-4.0cm) FS (%) 34.4 %LVEF (%)63.9 (>50%) M-Mode DIMENSIONS Left Atrium (MM)3.27 (2.5-4.0cm)Aortic Root2.74 (2.2-3.7cm) Aortic Cusp Exc.1.62 (1.5-2.0cm) Mitral Valve MV E Escjdxog01.7cm/sMV A Stimmmhh39.8cm/sE/A ratio1.6 TDI E/Lateral E'0.0E/Medial E'0.0 Tricuspid Valve TR Peak Inohefys390io/sTR Peak Gr.[id number] LEFT VENTRICLE The left ventricle is normal size. There is normal left ventricular wall thickness. Left ventricle systolic function is normal. The Ejection Fraction is 60-65%. There is normal LV segmental wall motion. The left ventricular diastolic function is normal. RIGHT VENTRICLE The right ventricle is normal size. There is normal right ventricular wall thickness. The right ventricular systolic function is normal. ATRIA The left atrium size is normal. The right atrium size is normal. The interatrial septum is intact with no evidence for an atrial septal defect. AORTIC VALVE The aortic valve is normal in structure. No aortic regurgitation is present. There is no aortic valvular stenosis. MITRAL VALVE The mitral valve is normal in structure. There is no evidence of mitral valve prolapse. There is no mitral valve stenosis. Mitral regurgitation is mild. TRICUSPID VALVE The tricuspid valve is normal in structure. There is mild tricuspid regurgitation. Right ventricular systolic pressure is estimated at less than 30 mmHg. There is no pulmonary hypertension. PULMONIC VALVE The pulmonic valve is not well visualized. There is no pulmonic valvular regurgitation. GREAT VESSELS The aortic root is normal in size. PERICARDIAL EFFUSION There is no significant pericardial effusion. <Conclusion> Left ventricle systolic function is normal. The Ejection Fraction is 60-65%. No aortic regurgitation is present. Mitral regurgitation is mild. There is mild tricuspid regurgitation. There is no pulmonary hypertension. There is no pulmonic valvular regurgitation.
--- NOTE | 2017-04-21 22:53 | CARD ---
APPROVED REPORT EKG Measurement Heart [id number] <Conclusion> Normal sinus rhythm Normal ECG
[2017-04-22] MEDS: Sodium Chloride 0.9% 1,000 ML IV SCH (07:00)
[2017-04-22 08:01] LABS: BASO % 0.8 % (0.0-2.0); EOS # 0.2 K/uL (0.0-0.7); EOS % 2.4 % (0.0-4.0); HEMOGLOBIN 8.4 g/dL (11.0-16.0); LYMPH # 2.1 K/uL (1.0-4.3); LYMPH % 33.4 % (20.0-40.0); MEAN CORPUSCULAR HGB CONC 32.9 g/dL (33.0-37.0); MEAN PLATELET VOLUME 9.6 fL (7.2-11.7); MONO # 0.3 K/uL (0.0-0.8); MONO % 5.3 % (0.0-10.0); NEUT # 3.7 K/uL (1.8-7.0); NEUT % 58.1 % (50.0-75.0); NRBC % 0.1 % (0.0-2.0); RBC 3.25 Mil/uL (3.80-5.20); RED CELL DISTRIBUTION WIDTH 20.2 % (11.5-14.5); WHITE BLOOD COUNT 6.3 K/uL (4.8-10.8)
[2017-04-22 08:06] LABS: INR 1.1; PROTHROMBIN TIME 12.1 SECONDS (9.7-12.2)
[2017-04-22 08:09] LABS: ALB/GLOB RATIO 1.2 (1.0-2.1); ALBUMIN 3.6 g/dL (3.5-5.0); ALT/SGPT 19 U/L (9-52); AST/SGOT 18 U/L (14-36); BLOOD UREA NITROGEN 6 mg/dL (7-17); CALCIUM 8.4 mg/dl (8.6-10.4); GFR AFRICAN-AMERICAN > 60; GFR NON-AFRICAN AMERICAN > 60; HDL CHOLESTEROL 33 mg/dL (30-70)
[2017-04-22 08:18] LABS: LDL CHOLESTEROL 143 mg/dL (0-129)
[2017-04-22 08:30] LABS: T4 9.43 ug/dL (5.5-11.0)
[2017-04-22] MEDS: Ferric Sodium Gluconat Complex 125 MG in Sodium Chloride 0.9% 100 ML IVPB SCH (11:30)
--- NOTE | 2017-04-22 14:01 | CP.PCM.PN ---
<StephenSahara - Last Filed: 04/22/17 14:13> Subjective - Date & Time of Evaluation Date of Evaluation: 04/22/17 Time of Evaluation: 13:00 - Subjective Subjective: Patient seen and examined at bedside. Per nursing staff, no acute events overnight. Patient still feels quite dizzy. Reports that bleeding has decreased. Denies chest pain, shortness of breath. Abdominal/pelvic cramping pain improving. Denies nausea, vomiting, diarrhea, constipation, fever, chills. Objective - Vital Signs/Intake and Output Vital Signs (last 24 hours): Temp Pulse Resp BP Pulse Ox 98.1 F 75 18 129/80 98 04/22/17 07:00 04/22/17 07:05 04/22/17 07:00 04/22/17 07:00 04/22/17 07:00 Intake and Output: 04/22/17 04/22/17 06:59 18:59 Intake Total 550 Balance 550 - Medications Medications: Current Medications Acetaminophen (Tylenol 325mg Tab) 650 mg PO Q6 PRN PRN Reason: fever/pain Last Admin: 04/21/17 22:38 Dose: 650 mg Sodium Chloride (Sodium Chloride 0.9%) 1,000 mls @ 50 mls/hr IV .Q20H [facility] Last Admin: 04/22/17 07:00 Dose: Not Given Ferric Sodium Gluconate Complex 125 mg/ Sodium Chloride 110 mls @ 110 mls/hr IVPB Q24H [facility] Stop: 04/29/17 11:01 Last Admin: 04/22/17 11:30 Dose: 110 mls/hr - Labs Labs: 04/22/17 07:46 04/22/17 07:46 PT 12.1 SECONDS (9.7-12.2) 04/22/17 07:46 INR 1.1 04/22/17 07:46 APTT 29 SECONDS (21-34) 04/22/17 07:46 - Constitutional Appears: Non-toxic, No Acute Distress - Head Exam Head Exam: ATRAUMATIC, NORMOCEPHALIC - Eye Exam Eye Exam: EOMI, Normal appearance, PERRL - ENT Exam ENT Exam: Mucous Membranes Moist - Neck Exam Neck Exam: Normal Inspection - Respiratory Exam Respiratory Exam: Clear to Ausculation Bilateral, NORMAL BREATHING PATTERN - Cardiovascular Exam Cardiovascular Exam: RRR, +S1, +S2 - GI/Abdominal Exam GI & Abdominal Exam: Soft, Tenderness (mild, suprapubic), Normal Bowel Sounds - Exam Additional comments: Pad with scant/small amount of red blood - Extremities Exam Extremities Exam: absent: Calf Tenderness, Pedal Edema - Back Exam Back Exam: NORMAL INSPECTION - Neurological Exam Neurological Exam: Alert, Awake, Oriented x3 - Psychiatric Exam Psychiatric exam: Normal Affect, Normal Mood - Skin Skin Exam: Dry, Intact, Normal Color Assessment and Plan - Assessment and Plan (Free Text) Assessment: 41 yo female presents complaining of vaginal bleeding x3 months, chest pain, and syncope; admitted to telemetry for ACS r/o and symptomatic anemia; downtrending H&H - Transvaginal US showed heterogenous consistency of the uterus, thickened endometrium, again demonstrates subserosal fibroids - VSS, continues to have mild amount of vaginal bleeding, noted on sanitary pad - Repeat CBC shows slight decrease in H&H; 2/2 hemodilution vs vaginal bleeding - Agree with IV iron; patient should start oral iron upon discharge - Recommend starting combined oral contraceptive upon discharge - Necon ; 1 tab PO TID x3 days or until bleeding stops, then 1 tab PO BID x5 days, then 1 tab PO QD until pack is finished, then skip inert (placebo) pills and start new pack, 1 tab PO QD, to completion - Patient requires outpatient follow up for endometrial biopsy vs D&C; further hormonal management; mammogram - Plan discussed with Dr. Jaya Shoemaker Amine DO PGY1 <[place] - Last Filed: 04/22/17 22:11> Objective - Vital Signs/Intake and Output Vital Signs (last 24 hours): Temp Pulse Resp BP Pulse Ox 97.7 F 85 18 104/68 97 04/22/17 20:22 04/22/17 20:22 04/22/17 20:22 04/22/17 20:22 04/22/17 16:42 Intake and Output: 04/22/17 04/23/17 18:59 06:59 Intake Total 650 0 Balance 650 0 - Medications Medications: Current Medications Acetaminophen (Tylenol 325mg Tab) 650 mg PO Q6 PRN PRN Reason: fever/pain Last Admin: 04/21/17 22:38 Dose: 650 mg Sodium Chloride (Sodium Chloride 0.9%) 1,000 mls @ 50 mls/hr IV .Q20H [facility] Last Admin: 04/22/17 07:00 Dose: Not Given Ferric Sodium Gluconate Complex 125 mg/ Sodium Chloride 110 mls @ 110 mls/hr IVPB Q24H [facility] Stop: 04/29/17 11:01 Last Admin: 04/22/17 11:30 Dose: 110 mls/hr Rosuvastatin Calcium (Crestor) 2.5 mg PO HS [facility] - Labs Labs: 04/22/17 07:46 04/22/17 07:46 PT 12.1 SECONDS (9.7-12.2) 04/22/17 07:46 INR 1.1 04/22/17 07:46 APTT 29 SECONDS (21-34) 04/22/17 07:46 Attending/Attestation - Attestation I have personally seen and examined this patient.: Yes I have fully participated in the care of the patient.: Yes I have reviewed all pertinent clinical information, including history, physical exam and plan: Yes Notes (Text): 04/22/17 22:09 At time of evaluation of patient as described, sanitary pad was examined - minimal amount of dark blood noted = spotting. Patient had just changed; reported that vaginal bleeding is less than on admission. All else as above. 04/22/17 22:11 Thank you for the pleasure of this consultation
--- NOTE | 2017-04-22 14:32 | CT ---
PROCEDURE: CT HEAD WITHOUT CONTRAST. HISTORY: Dizziness COMPARISON: 05/12/2014. TECHNIQUE: Axial computed tomography images were obtained through the head/brain without intravenous contrast. Radiation dose: Total exam DLP = 1020.72 mGy-cm. This CT exam was performed using one or more of the following dose reduction techniques: Automated exposure control, adjustment of the mA and/or kV according to patient size, and/or use of iterative reconstruction technique. FINDINGS: HEMORRHAGE: No intracranial hemorrhage. BRAIN: Reddy-white matter differentiation is preserved. There is no mass, mass effect or abnormal extra-axial fluid collection. VENTRICLES: The ventricles are normal in size, shape and configuration. CALVARIUM: The skull base and calvarium are normal. PARANASAL SINUSES: Predominantly clear. MASTOID AIR CELLS: Predominantly clear. OTHER FINDINGS: None. IMPRESSION: No acute intracranial abnormality.
--- NOTE | 2017-04-22 14:38 | CP.PCM.PN ---
<Alon Arciniega - Last Filed: 04/22/17 14:35> Subjective - Date & Time of Evaluation Date of Evaluation: 04/22/17 Time of Evaluation: 07:25 - Subjective Subjective: PGY1 Medicine Note for Dr. Abreu Patient seen and examined this morning at bedside. Patient states she is no longer experiencing chest pain but is still feeling exhausted. She attempted to stand and got dizzy immediately. She has had to support herself and have help from her daughter/nurses in order to go to the bathroom without falling over. She states the vaginal bleeding has decreased today but it is still present. She is tolerating her diet and has no other complaints at this time. Objective - Vital Signs/Intake and Output Vital Signs (last 24 hours): Temp Pulse Resp BP Pulse Ox 98.1 F 75 18 129/80 98 04/22/17 07:00 04/22/17 07:05 04/22/17 07:00 04/22/17 07:00 04/22/17 07:00 Intake and Output: 04/22/17 04/22/17 06:59 18:59 Intake Total 550 Balance 550 - Medications Medications: Current Medications Acetaminophen (Tylenol 325mg Tab) 650 mg PO Q6 PRN PRN Reason: fever/pain Last Admin: 04/21/17 22:38 Dose: 650 mg Sodium Chloride (Sodium Chloride 0.9%) 1,000 mls @ 50 mls/hr IV .Q20H [facility] Last Admin: 04/22/17 07:00 Dose: Not Given Ferric Sodium Gluconate Complex 125 mg/ Sodium Chloride 110 mls @ 110 mls/hr IVPB Q24H [facility] Stop: 04/29/17 11:01 Last Admin: 04/22/17 11:30 Dose: 110 mls/hr - Labs Labs: 04/22/17 07:46 04/22/17 07:46 PT 12.1 SECONDS (9.7-12.2) 04/22/17 07:46 INR 1.1 04/22/17 07:46 APTT 29 SECONDS (21-34) 04/22/17 07:46 - Constitutional Appears: Non-toxic, No Acute Distress, Other (appears tired) - Head Exam Head Exam: ATRAUMATIC, NORMOCEPHALIC - Eye Exam Eye Exam: EOMI - ENT Exam ENT Exam: Mucous Membranes Moist - Respiratory Exam Respiratory Exam: Clear to Ausculation Bilateral, NORMAL BREATHING PATTERN. absent: Accessory Muscle Use, Rales, Rhonchi, Wheezes, Respiratory Distress - Cardiovascular Exam Cardiovascular Exam: REGULAR RHYTHM, +S1, +S2 - GI/Abdominal Exam GI & Abdominal Exam: Soft, Normal Bowel Sounds. absent: Distended, Firm, Guarding, Rigid, Tenderness - Extremities Exam Extremities Exam: absent: Calf Tenderness, Pedal Edema - Neurological Exam Neurological Exam: Alert, Awake, Oriented x3 Additional comments: Patient complained of dizziness upon standing. She needed to be helped back down to the bed immediately. - Psychiatric Exam Psychiatric exam: Normal Affect, Normal Mood - Skin Skin Exam: Dry, Warm Assessment and Plan - Assessment and Plan (Free Text) Plan: Anemia w/dizziness - secondary to menorrhagia RECORDS MANAGEMENT ASSOCIATE consult, benny Cook appreciated Transvag US 04/01 - 2.7 cm mid-anterior sub serosal uterine fibroid. Transvag US 04/21 - Heterogeneous uterine parenchyma. Anterior sub serosal fibroid measures approximately 2.8 cm. Endometrial thickness approximately 1 cm. Correlate with stage of menstrual cycle. 2.1 cm right ovarian follicle/ cyst. Head CT w/o - No acute intracranial abnormality Hgb 8.4 * 9.2 on admission - was 11.9 on 04/01/17 * due to patient being symptomatic, patient transfused one unit of pRBCs. Ferric Sodium 125mg IVPB daily Vit D - f/u Chest Pain with syncope CXR - No focal infiltrate or effusion. EKG - NSR, normal axis, not ST changes OTTO negative x3 Pro BNP - 34.5 ECHO 04/21/17 Left ventricle systolic function is normal. The Ejection Fraction is 60-65%. No aortic regurgitation is present. Mitral regurgitation is mild. There is mild tricuspid regurgitation. There is no pulmonary hypertension. There is no pulmonic valvular regurgitation TSH 4.05 free T4 9.43 Lipid panel - HDL 33, LDL 143, Chol 228, Trigly 166 * started on crestor 2.5mg PO HS Hgb A1c 4.9 Prophylactic Care DVT - anticoag contraindicated due to anemia SCDs Case discussed with Dr. Lois Arciniega PGY1 <Francisco Abreu - Last Filed: 04/22/17 15:10> Objective - Vital Signs/Intake and Output Vital Signs (last 24 hours): Temp Pulse Resp BP Pulse Ox 98.1 F 75 18 129/80 98 04/22/17 07:00 04/22/17 07:05 04/22/17 07:00 04/22/17 07:00 04/22/17 07:00 Intake and Output: 04/22/17 04/22/17 06:59 18:59 Intake Total 550 650 Balance 550 650 - Medications Medications: Current Medications Acetaminophen (Tylenol 325mg Tab) 650 mg PO Q6 PRN PRN Reason: fever/pain Last Admin: 04/21/17 22:38 Dose: 650 mg Sodium Chloride (Sodium Chloride 0.9%) 1,000 mls @ 50 mls/hr IV .Q20H [facility] Last Admin: 04/22/17 07:00 Dose: Not Given Ferric Sodium Gluconate Complex 125 mg/ Sodium Chloride 110 mls @ 110 mls/hr IVPB Q24H [facility] Stop: 04/29/17 11:01 Last Admin: 04/22/17 11:30 Dose: 110 mls/hr Rosuvastatin Calcium (Crestor) 2.5 mg PO HS [facility] - Labs Labs: 04/22/17 07:46 04/22/17 07:46 PT 12.1 SECONDS (9.7-12.2) 04/22/17 07:46 INR 1.1 04/22/17 07:46 APTT 29 SECONDS (21-34) 04/22/17 07:46 Attending/Attestation - Attestation I have personally seen and examined this patient.: Yes I have fully participated in the care of the patient.: Yes I have reviewed all pertinent clinical information, including history, physical exam and plan: Yes Notes (Text): 04/22/17 15:09 Medical attending: Patient was seen and examined by me as well. Agree with the above note by the resident. The patient was not in any acute distress when we saw her Family members were present as well. Patient was ok with this The patient reported she still felt dizzy and weak - particularly with walking. The Hgb did decrease to 8.2, considering she had blood work previous visit showing a much higher Hgb then we will give ONE unit of PRBCs. Also will check CT scan of the head as well as TSH Vit D OH 25 She explains to us that walking is very difficult. She cannot move quickly at all. She had an echo that returned and this was reported no acute findings. thank you Francisco Abreu
[2017-04-22] MEDS ORDERED: Rosuvastatin Calcium 2.5 mg Tab PO SCH (22:00)
[2017-04-23 07:45] VITALS: BP 109/74; RESP 18; TEMP 97.4; O2SAT 99
[2017-04-23 07:48] LABS: BASO # 0.1 K/uL (0.0-0.2); BASO % 0.8 % (0.0-2.0); EOS # 0.2 K/uL (0.0-0.7); EOS % 2.7 % (0.0-4.0); HEMOGLOBIN 9.9 g/dL (11.0-16.0); LYMPH # 2.2 K/uL (1.0-4.3); LYMPH % 31.9 % (20.0-40.0); MEAN CELL VOLUME 79.1 fL (81.0-99.0); MEAN CORPUSCULAR HEMOGLOBIN 27.1 pg (27.0-31.0); MEAN CORPUSCULAR HGB CONC 34.2 g/dL (33.0-37.0); MEAN PLATELET VOLUME 9.3 fL (7.2-11.7); MONO # 0.4 K/uL (0.0-0.8); MONO % 5.5 % (0.0-10.0); NEUT % 59.1 % (50.0-75.0); NRBC % 0.1 % (0.0-2.0); RBC 3.67 Mil/uL (3.80-5.20); RED CELL DISTRIBUTION WIDTH 19.1 % (11.5-14.5); WHITE BLOOD COUNT 6.8 K/uL (4.8-10.8)
[2017-04-23 09:35] LABS: ALB/GLOB RATIO 1.2 (1.0-2.1); ALBUMIN 3.6 g/dL (3.5-5.0); ALT/SGPT 25 U/L (9-52); AST/SGOT 25 U/L (14-36); BLOOD UREA NITROGEN 5 mg/dL (7-17); CALCIUM 8.6 mg/dl (8.6-10.4); GFR AFRICAN-AMERICAN > 60; GFR NON-AFRICAN AMERICAN > 60
[2017-04-23] MEDS ORDERED: Pneumococcal 23-Valent Vaccine IM ONE (10:10)
[2017-04-23] MEDS ORDERED: Influenza Vaccine 60 mcg/0.5 mL SYR (4YR UP) IM ONE (10:10)
[2017-04-23] MEDS: Ferric Sodium Gluconat Complex 125 MG in Sodium Chloride 0.9% 100 ML IVPB SCH (10:55)
--- NOTE | 2017-04-23 11:33 | CP.PCM.DIS ---
Provider - Provider Date of Admission: 04/21/17 08:25 Attending physician: Francisco Abreu DO Consults: ACCURACY EXPERT - Dr. Graf Time Spent in preparation of Discharge (in minutes): 30 Hospital Course - Lab Results Lab Results: Most Recent Lab Values WBC 6.8 K/uL (4.8-10.8) 04/23/17 07:30 RBC 3.67 Mil/uL (3.80-5.20) L 04/23/17 07:30 Hgb 9.9 g/dL (11.0-16.0) L 04/23/17 07:30 Hct 29.0 % (34.0-47.0) L 04/23/17 07:30 MCV 79.1 fL (81.0-99.0) L 04/23/17 07:30 MCH 27.1 pg (27.0-31.0) 04/23/17 07:30 MCHC 34.2 g/dL (33.0-37.0) 04/23/17 07:30 RDW 19.1 % (11.5-14.5) H 04/23/17 07:30 Plt Count 288 K/uL (130-400) 04/23/17 07:30 MPV 9.3 fL (7.2-11.7) 04/23/17 07:30 Neut % (Auto) 59.1 % (50.0-75.0) 04/23/17 07:30 Lymph % (Auto) 31.9 % (20.0-40.0) 04/23/17 07:30 [place] % (Auto) 5.5 % (0.0-10.0) 04/23/17 07:30 Eos % (Auto) 2.7 % (0.0-4.0) 04/23/17 07:30 Baso % (Auto) 0.8 % (0.0-2.0) 04/23/17 07:30 Neut # (Auto) 4.0 K/uL (1.8-7.0) 04/23/17 07:30 Lymph # (Auto) 2.2 K/uL (1.0-4.3) 04/23/17 07:30 [place] # (Auto) 0.4 K/uL (0.0-0.8) 04/23/17 07:30 Eos # (Auto) 0.2 K/uL (0.0-0.7) 04/23/17 07:30 Baso # (Auto) 0.1 K/uL (0.0-0.2) 04/23/17 07:30 PT 12.1 SECONDS (9.7-12.2) 04/22/17 07:46 INR 1.1 04/22/17 07:46 APTT 29 SECONDS (21-34) 04/22/17 07:46 Sodium 139 mmol/L (132-148) 04/23/17 07:30 Potassium 4.1 mmol/L (3.6-5.2) 04/23/17 07:30 Chloride 106 mmol/L (98-107) 04/23/17 07:30 Carbon Dioxide 22 mmol/L (22-30) 04/23/17 07:30 Anion Gap 16 (10-20) 04/23/17 07:30 BUN 5 mg/dL (7-17) L 04/23/17 07:30 Creatinine 0.5 mg/dL (0.7-1.2) L 04/23/17 07:30 Est GFR ( Amer) > 60 04/23/17 07:30 Est GFR (Non-Af Amer) > 60 04/23/17 07:30 Random Glucose 87 mg/dL (65-105) 04/23/17 07:30 Hemoglobin A1c 4.9 % (4.2-6.5) 04/22/17 07:46 Calcium 8.6 mg/dl (8.6-10.4) 04/23/17 07:30 Total Bilirubin 1.2 mg/dL (0.2-1.3) 04/23/17 07:30 AST 25 U/L (14-36) 04/23/17 07:30 ALT 25 U/L (9-52) 04/23/17 07:30 Alkaline Phosphatase 56 U/L (38-126) 04/23/17 07:30 Total Creatine Kinase 51 U/L (30-135) 04/21/17 18:05 CK-MB (Mass) 0.27 ng/mL (0.0-3.38) 04/21/17 18:05 Troponin I < 0.0120 ng/mL (0.00-0.120) 04/21/17 18:05 NT-Pro-B Natriuret Pep 34.5 pg/mL (0-450) 04/21/17 05:44 Total Protein 6.8 g/dL (6.3-8.3) 04/23/17 07:30 Albumin 3.6 g/dL (3.5-5.0) 04/23/17 07:30 Globulin 3.1 gm/dL (2.2-3.9) 04/23/17 07:30 Albumin/Globulin Ratio 1.2 (1.0-2.1) 04/23/17 07:30 Triglycerides 166 mg/dL (0-149) H 04/22/17 07:46 Cholesterol 228 mg/dL (0-199) H 04/22/17 07:46 LDL Cholesterol Direct 143 mg/dL (0-129) H 04/22/17 07:46 HDL Cholesterol 33 mg/dL (30-70) 04/22/17 07:46 Thyroxine (T4) 9.43 ug/dL (5.5-11.0) 04/22/17 07:46 TSH 3rd Generation 4.05 mIU/L (0.46-4.68) 04/22/17 07:46 Urine Color Red (YELLOW) 04/21/17 06:36 Urine Clarity Hazy (Clear) 04/21/17 06:36 Urine pH 5.0 (5.0-8.0) 04/21/17 06:36 Ur Specific [place] 1.013 (1.003-1.030) 04/21/17 06:36 Urine Protein 1+ mg/dL (NEGATIVE) H 04/21/17 06:36 Urine Glucose (UA) Normal mg/dL (Normal) 04/21/17 06:36 Urine Ketones Negative mg/dL (NEGATIVE) 04/21/17 06:36 Urine Blood 3+ (NEGATIVE) H 04/21/17 06:36 Urine Nitrate Negative (NEGATIVE) 04/21/17 06:36 Urine Bilirubin Negative (NEGATIVE) 04/21/17 06:36 Urine Urobilinogen Normal mg/dL (0.2-1.0) 04/21/17 06:36 Ur Leukocyte Esterase Trace [place]/uL (Negative) 04/21/17 06:36 Urine WBC (Auto) 20 /hpf (0-5) H 04/21/17 06:36 Urine RBC (Auto) 1199 /hpf (0-3) H 04/21/17 06:36 Ur Squamous Epith Cells 3 /hpf (0-5) 04/21/17 06:36 Urine HCG, Qual Negative (NEGATIVE) 04/21/17 06:36 Blood Type B POSITIVE 04/22/17 14:47 Antibody Screen Negative 04/22/17 14:47 Discharge Exam - Head Exam Head Exam: ATRAUMATIC, NORMOCEPHALIC Discharge Plan - Follow Up Plan Condition: FAIR Disposition: HOME/ ROUTINE Instructions: Syncope (Fainting), Chest Pain, Anemia Caused by Low Iron, Adult (DC), Heavy Periods (DC), Near Fainting (DC) Additional Instructions: Patient is to be discharged home per Dr. Abreu. Patient is to continue to take her medications as previously prescribed by her primary care physician. Patient is to follow up with her primary care physician within two weeks of being discharged. If the patient does not have a primary care physician, she can follow up in the [facility] located in the [facility]. Patient was unable to make her appointment on Friday04/23/2017 due to being in the hospital and the weather. Patient is to call and make a new appointment for follow up care. Patient was given one new medication, Necon 1/ 35. If patient experiences any new or worsening symptoms, please return to the nearest emergency facility. New Prescriptions, Necon 1/35; 1 tab PO TID x3 days or until bleeding stops, then 1 tab PO BID x5 days, then 1 tab PO QD until pack is finished, then skip inert (placebo) pills and start new pack, 1 tab PO QD, to completion Referrals: [facility] at [facility] [Outside] Aung Graf MD [Staff Provider] - Marylou Villatoro MD [Medical Doctor] - [place] MD [Staff Provider] -
[2017-04-23 13:43] VITALS: PULSE 79
== END 2017-04-23 12:25 | disposition home or self-care (01) ==
LOC: SUPCPDRO 05:13 → C.ER 05:13 → C.9E 08:25 → C.5S 16:40
PROVIDERS: ADMIT Hospitalist; ATTEND Hospitalist
DX: D25.2 Subserosal leiomyoma of uterus (principal); D64.9 Anemia, unspecified; N94.6 Dysmenorrhea, unspecified; N97.0 Female infertility associated with anovulation; R07.89 Other chest pain; R55 Syncope and collapse
CPT/HCPCS: 36415; 36430; 70450; 71045; 76830; 80053; 80061; 81001; 83036; 83880; 84436; 84443; 84484; 84703; 85025; 85610; 85730; 86850; 86900; 86920; 90471; 90674; 90732; 93005; 93306; 99285; G0378; J2916; J7040; P9051

== ENCOUNTER 2017-05-02 09:36 | Emergency (ER) | payer OTHER ==
[2017-05-02 09:47] VITALS: BMI 32.0
[2017-05-02 09:52] VITALS: O2SAT 99
[2017-05-02] MEDS ORDERED: Sodium Chloride 0.9% 1,000 ML IV ONE (10:17)
--- NOTE | 2017-05-02 10:20 | C.PDOC ---
History Of Present Illness 41 y/o with history of uterine fibroids presents to ED status post walking across street and falling to ground. Patient states she has vaginal bleeding for 4 months and was admitted 2 weeks ago for anemia and had blood transfusion, placed on control pills. Patient reports bleeding has decreased after discharged but admits to lightheadedness and denies loc, fecal or urine incontinence, chest pain, sob or any other complaints at this time. Chief Complaint (Nursing): Syncope History Per: Patient History/Exam Limitations: no limitations Onset/Duration Of Symptoms: Days Current Symptoms Are (Timing): Still Present Past Medical History Reviewed: Historical Data, Nursing Documentation, Vital Signs Vital Signs: Last Vital Signs Temp 98.2 F 05/02/17 11:49 Pulse 79 05/02/17 11:49 Resp 18 05/02/17 11:49 BP 114/77 05/02/17 11:49 Pulse Ox 99 05/02/17 12:38 - Medical History PMH: Anemia Surgical History: No Surg Hx Family History: States: No Known Family Hx - Social History Hx Tobacco Use: No Hx Alcohol Use: Yes Hx Substance Use: No - Immunization History Hx Tetanus Toxoid Vaccination: No Hx Influenza Vaccination: No Hx Pneumococcal Vaccination: No Review Of Systems Constitutional: Negative for: Fever, Chills Cardiovascular: Positive for: Light Headedness. Negative for: Chest Pain Respiratory: Negative for: Shortness of Breath Gastrointestinal: Negative for: Nausea, Vomiting Skin: Negative for: Rash Neurological: Negative for: Weakness, Numbness Physical Exam - Physical Exam Appears: Non-toxic, No Acute Distress Skin: Warm, Dry, No Rash Head: Atraumatic, Normacephalic Eye(s): bilateral: Normal Inspection Oral Mucosa: Moist Neck: Normal ROM, Supple Cardiovascular: Rhythm Regular Respiratory: Normal Breath Sounds, No Rales, No Rhonchi, No Wheezing Gastrointestinal/Abdominal: Soft, No Tenderness, No Guarding, No Rebound, Other (obese) Extremity: Normal ROM, Capillary Refill (<2 seconds) Neurological/Psych: Oriented x3, Normal Speech, Normal Cognition, Normal Cranial Nerves, Normal Motor, Normal Sensation Gait: Steady ED Course And Treatment - Laboratory Results Result Diagrams: 05/02/17 10:37 05/02/17 10:37 ECG: Interpreted By Me, Viewed By Me ECG Rhythm: Sinus Rhythm Rate From EC (BPM) O2 Sat by Pulse Oximetry: 99 (RA) Pulse Ox Interpretation: Normal Medical Decision Making Medical Decision Making: Impression: Near syncope Plan: Blood work, ECG, UA, Detective Supervisor and IV fluids administered Disposition - Disposition Referrals: [facility] at [facility] [Outside] Disposition: HOME/ ROUTINE Disposition Time: 13:43 Condition: FAIR Instructions: Near Fainting Forms: [employer] (Kenyan), Work Excuse - Clinical Impression Clinical Impression: Near syncope - Scribe Statement The provider has reviewed the documentation as recorded by the Scribmeg Georges All medical record entries made by the Wanderibmeg were at my direction and personally dictated by me. I have reviewed the chart and agree that the record accurately reflects my personal performance of the history, physical exam, medical decision making, and the department course for this patient. I have also personally directed, reviewed, and agree with the discharge instructions and disposition.
[2017-05-02] MEDS ORDERED: Sodium Chloride 0.9% 1,000 ML ONE (10:36)
[2017-05-02 10:40] LABS: BASO # 0.1 K/uL (0.0-0.2); BASO % 0.9 % (0.0-2.0); EOS # 0.2 K/uL (0.0-0.7); LYMPH # 1.9 K/uL (1.0-4.3); LYMPH % 23.6 % (20.0-40.0); MEAN CELL VOLUME 81.8 fL (81.0-99.0); MEAN CORPUSCULAR HEMOGLOBIN 26.9 pg (27.0-31.0); MEAN CORPUSCULAR HGB CONC 32.8 g/dL (33.0-37.0); MEAN PLATELET VOLUME 8.7 fL (7.2-11.7); MONO # 0.4 K/uL (0.0-0.8); MONO % 5.5 % (0.0-10.0); NEUT # 5.3 K/uL (1.8-7.0); RBC 4.1 Mil/uL (3.80-5.20); RED CELL DISTRIBUTION WIDTH 19.1 % (11.5-14.5); WHITE BLOOD COUNT 7.9 K/uL (4.8-10.8)
[2017-05-02 10:55] LABS: SQUAMOUS EPITHIAL 2 /hpf (0-5); URINE BACTERIA RARE (<OCC); URINE BILIRUBIN NEGATIVE (NEGATIVE); URINE BLOOD NEGATIVE (NEGATIVE); URINE CLARITY Hazy (Clear); URINE COLOR Yellow (YELLOW); URINE GLUCOSE (UA) NORMAL (Normal); URINE LEUKOCYTE ESTERASE NEG Leu/uL (Negative); URINE PROTEIN NEGATIVE (NEGATIVE); URINE UROBILINOGEN NORMAL mg/dL (0.2-1.0)
[2017-05-02 11:10] LABS: ALB/GLOB RATIO 1.1 (1.0-2.1); ALT/SGPT 51 U/L (9-52); AST/SGOT 38 U/L (14-36); BLOOD UREA NITROGEN 7 mg/dL (7-17); CALCIUM 8.6 mg/dl (8.6-10.4); GFR AFRICAN-AMERICAN > 60; GFR NON-AFRICAN AMERICAN > 60
[2017-05-02 12:27] VITALS: BP 114/77; PULSE 79; RESP 18; TEMP 98.2
== END 2017-05-02 12:27 | disposition home or self-care (01) ==
LOC: C.ER 09:36
DX: R55 Syncope and collapse (principal); D64.9 Anemia, unspecified
CPT/HCPCS: 80053; 81001; 84484; 84702; 85025; 96360; 99285; J7040

== ENCOUNTER 2017-06-04 23:59 | Emergency (ER) | payer SELFPAY ==
[2017-06-04 23:59] VITALS: BMI 33.6
[2017-06-05] MEDS ORDERED: Albuterol-Ipratrop 3 mg / 0.5 (3 ml) UD ONE (00:14)
[2017-06-05] MEDS ORDERED: Albuterol 0.083% Inhal Sol (2.5 mg/3 mL) UD INH STA (00:22)
--- NOTE | 2017-06-05 03:34 | C.PDOC ---
History Of Present Illness Patient is a 41 y/o female who presents to the ED with a complaint of generalized body aches, cough, and chest congestion for the last 5 days. Patient reports she has been taking theraflu and today, experienced persistent cough that led to chest tightness, prompting visit. Patient denies fever, recent travel, or sick contact. No other physical complaints at this time. HPI: Influenza Time Seen by Provider: 06/05/17 01:29 Chief Complaint: Cough, Cold, Congestion History Per: Patient Exam Limitations: no limitations Have you had recent travel within the past 21 days to any of the following countries: [place], [place], [place] or [place]?: No Onset/Duration Of Symptoms: Days (5) Symptoms include: bodyaches, cough, other (chest congestion) Sick Contacts (Context): None Past Medical History Reviewed: Historical Data, Nursing Documentation, Vital Signs Vital Signs: Last Vital Signs Temp 99.2 F 06/05/17 00:22 Pulse 86 06/05/17 02:13 Resp 12 06/05/17 02:13 BP 122/77 06/05/17 02:13 Pulse Ox 100 06/05/17 02:13 - Medical History PMH: Anemia Surgical History: No Surg Hx Family History: States: No Known Family Hx - Social History Hx Tobacco Use: No Hx Alcohol Use: Yes Hx Substance Use: No - Immunization History Hx Tetanus Toxoid Vaccination: No Hx Influenza Vaccination: No Hx Pneumococcal Vaccination: No Review Of Systems Constitutional: Negative for: Fever Respiratory: Positive for: Cough, Other (chest congestion) Musculoskeletal: Positive for: Other (generalized body aches) Physical Exam - Physical Exam Appears: Well, Non-toxic, No Acute Distress Skin: Normal Color, Warm, Dry Head: Atraumatic, Normacephalic Oral Mucosa: Moist Throat: Normal, No Erythema, No Exudate Neck: Normal, No Midline Cervical Tenderness, No Paracervical Tenderness, Supple Chest: Symmetrical Respiratory: Normal Breath Sounds, No Rales, No Rhonchi, No Wheezing Neurological/Psych: Oriented x3, Normal Speech, Normal Cognition - ECG O2 Sat by Pulse Oximetry: 100 - Progress ED Course And Treament: CXR ordered. Benadryl, and prednisone administered. Rn states patient had decreased air breath sounds on arrival and preordered albuterol and saline nebulizer. On re-eval, air moving in all lung rubin well. CXR shows no infiltrates, unchanged from previous. Patient is stable, in no acute distress, and is stable for discharge. Return precautions given. Disposition Counseled Patient/Family Regarding: Diagnosis, Need For Followup, Rx Given - Disposition Referrals: PMD, PMD [Other] Disposition: HOME/ ROUTINE Disposition Time: 03:32 Condition: STABLE Additional Instructions: Please increase PO fluids' Take meds as directed Return to ER if worse Prescriptions: Benzonatate [Tessalon Perles] 100 mg PO TID #20 sgl Cetirizine HCl [Zyrtec] 10 mg PO DAILY #20 capsule Ibuprofen [Motrin] 600 mg PO Q6H #20 tab Mometasone Furoate [Nasonex] 2 spray NS DAILY #1 bottle Instructions: Upper Respiratory Infection (ED) Forms: [employer] (Lithuanian) - Clinical Impression Clinical Impression: Upper respiratory infection, Influenza-like illness - Scribe Statement The provider has reviewed the documentation as recorded by the Scribe Jennifer Lyn All medical record entries made by the Scribe were at my direction and personally dictated by me. I have reviewed the chart and agree that the record accurately reflects my personal performance of the history, physical exam, medical decision making, and the department course for this patient. I have also personally directed, reviewed, and agree with the discharge instructions and disposition.
[2017-06-05 03:49] VITALS: BP 123/81; PULSE 100; RESP 20; TEMP 98.2
[2017-06-05 04:01] VITALS: O2SAT 100
--- NOTE | 2017-06-05 08:25 | RAD ---
HISTORY: cough, congestion COMPARISON: Chest x-ray 04/21/2017 TECHNIQUE: Chest PA and lateral FINDINGS: LUNGS: No focal consolidation is seen. PLEURA: No pleural effusion is identified. CARDIOVASCULAR: Heart size is within normal limits. OSSEOUS STRUCTURES: Visualized osseous structures are unremarkable. VISUALIZED UPPER ABDOMEN: Unremarkable. OTHER FINDINGS: None. IMPRESSION: No acute cardiopulmonary process seen.
== END 2017-06-05 04:05 | disposition home or self-care (01) ==
LOC: C.ER 23:59
DX: J11.1 Influenza due to unidentified influenza virus with other respiratory manifestations (principal)